=== PATIENT | male | born 2000 | race Caucasian/White ===

== ENCOUNTER → 2023-05-13 11:10 | Outpatient (REF) | payer BC, SELFPAY | LOC: HWRAD 11:10 | PROVIDERS: ATTENDING PHYSICIAN Chiropractor; FAMILY PHYSICIAN Family Medicine | DX: M54.6 Pain in thoracic spine (principal) | CPT/HCPCS: 72072 ==

== ENCOUNTER 2023-05-17 10:13 | Emergency (ER) | payer BC, SELFPAY ==
[2023-05-17 10:16] VITALS: BP 117/77
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
[2023-05-17] MEDS: NSS 1000 IV (11:52)
[2023-05-17] MEDS: ZOFRAN 4 MG IV (11:53)
[2023-05-17 12:05] LABS: COVID-19 Antigen Negative (Negative)
[2023-05-17 12:06] LABS: % Basophils 0.2 % (0-2); % Immature Granulocytes 0.2 % (0-0.5); % Lymphocytes 37.2 % (20.5-51.1); % Monocytes 15.7 % (1.7-9.3); % Neutrophils 46.7 % (42.2-75.2); Absolute Lymphocytes 1.7 10^3/uL (1.2-3.4); Absolute Monocytes 0.7 10^3/uL (0.1-0.6); Absolute Neutrophils 2.2 10^3/uL (1.4-6.5); Hematocrit 41.3 % (39.0-52.0); Mean Corp Hgb Conc. 36.3 g/dL (33.0-37.0); Mean Corpuscular Hgb 28.4 pg (27.0-31.0); Mean Corpuscular Volume 78.2 fL (80.0-94.0); Mean Platelet Volume 10.2 fL (7.4-10.4); Nucleated Red Blood Cells % 0 % (-); Platelet Count 157 10^3/uL (130-400); Red Blood Cell Count 5.28 10^6/uL (4.70-6.10); White Blood Cell Count 4.7 10^3/uL (4.8-10.8)
[2023-05-17 12:14] LABS: ALT (SGPT) 31 U/L (0-50); AST (SGOT) 38 U/L (17-59); Albumin 4.6 g/dl (3.5-5.0); Alkaline Phosphatase 74 U/L (38-126); Blood Urea Nitrogen 13 mg/dl (9-20); Carbon Dioxide 19 mmol/L (22-30); Chloride 104 mmol/L (98-107); Glucose 75 mg/dl (70-99); Potassium 3.5 mmol/L (3.5-5.1); Sodium 135 mmol/L (135-145); Total Bilirubin 0.8 mg/dl (0.2-1.3); Total Protein 7.1 g/dl (6.3-8.2); eGFR > 60.00
[2023-05-17 12:18] VITALS: BP 115/80
[2023-05-17 12:58] LABS: Troponin I < 0.012 ng/ml
[2023-05-17 13:03] LABS: Monotest Negative (Negative)
[2023-05-17 13:13] VITALS: BP 132/78
== END 2023-05-17 14:07 | disposition home or self-care (01) ==
LOC: EMR 10:13
PROVIDERS: Nurse Practitioner; EMERGENCY PHYSICIAN Emergency Medicine; FAMILY PHYSICIAN Family Medicine
DX: J10.1 Influenza due to other identified influenza virus with other respiratory manifestations (principal); R55 Syncope and collapse; E86.0 Dehydration; Z11.52 Encounter for screening for COVID-19
CPT/HCPCS: 99285; 96374; 96361; 70450; 80053; 84484; 85025; 86308; 87502; 87811; 93005